=== PATIENT | male | born 1980 | race Two or more races ===

== ENCOUNTER 2025-01-12 14:48 | Emergency (ER) | payer MEDICAID, OTHER ==
[~2025-01-12] VITALS: Ht 180.3 cm; Wt 117.0 kg
[2025-01-12 15:12] VITALS: BP 132/82; PULSE 64; RESP 20; TEMP 98.7; O2SAT 96
--- NOTE | 2025-01-12 16:20 | ED.PDOC ---
History of Present Illness(SKN HPI Comments A 44 YEAR OLD MALE PRESENTS TO THE ED WITH COMPLAINT OF PUNCTURE WOUND OF LEFT HAND. PATIENT STATES HE WAS WORKING WITH A PIECE OF WOOD AND A PART OF IT BROKE AND PUNCTURED HIS LEFT HAND. PATIENT REPORTS HE SUSTAINED A PUNCTURE WOUND TO HIS LEFT HAND. BLEEDING IS CONTROLLED AT THIS TIME. PATIENT DENIES FEVER, CHILLS, SHORTNESS OF BREATH, CHEST PAIN, ABDOMINAL PAIN, NAUSEA, VOMITING, HEADACHE, OR OTHER COMPLAINTS. NO OTHER SYMPTOMS OR MODIFYING FACTORS AT THIS TIME. PATIENT IS ALERT, ORIENTED X 4, AND HAS STEADY GAIT. 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) Condition of Object: None Retained Foreign Body: No Wound Type: Puncture Immunization Status of Animal: NA Tetanus: Unknown History of: None Associated Signs and Symptoms: None Past Medical History PAST MEDICAL HISTORY: Denies Surgical History: Denies all surgeries Family History Family History: Reviewed,noncontributory to illness Social History Smoker: Non-Smoker Alcohol: Denies ETOH Use Drugs: Denies Drug Use Lives In: Home Constitutional: denies: chills, diaphoresis, fatigue, fever, malaise, sweats, weakness, others EENTM: denies: blurred vision, double vision, ear bleeding, ear discharge, ear drainage, ear pain, ear ringing, eye pain, eye redness, hearing loss, mouth pain, mouth swelling, nasal discharge, nose bleeding, nose congestion, nose pain, photophobia, tearing, throat pain, throat swelling, voice changes, others Respiratory: denies: cough, hemoptysis, orthopnea, SOB at rest, shortness of breath, SOB with excertion, stridor, wheezing, others Cardiovascular: denies: chest pain, dizzy spells, diaphoresis, Dyspnea on exertion, edema, irregular heart beat, left arm pain, lightheadedness, palpitations, PND, syncope, others Gastrointestinal: denies: abdomen distended, abdominal pain, blood streaked bowels, constipated, diarrhea, dysphagia, difficulty swallowing, hematemesis, melena, nausea, poor appetite, poor fluid intake, rectal bleeding, rectal pain, vomiting, others Genitourinary: denies: burning, dysuria, flank pain, frequency, hematuria, incontinence, penile discharge, penile sore, pain, testicle pain, testicle swelling, urgency, others Neurological: denies: dizziness, fainting, headache, left sided numbness, left sided weakness, numbness, paresthesia, pre-existing deficit, right sided numbness, right sided weakness, seizure, speech problems, tingling, tremors, weakness, others Musculoskeletal: denies: back pain, gout, joint pain, joint swelling, muscle pain, muscle stiffness, neck pain, others Integumetry: reports: laceration (LEFT HAND ), wounds (PUNCTURE WOUND OF LEFT HAND); denies: bruises, change in color, change in hair/nails, dryness, lesions, lumps, rash, others Allergic/Immunocompromised: denies: Difficulty Healing, Frequent Infections, Hives, Itching, others Hematologic/Lymphatic: denies: anemia, blood clots, easy bleeding, easy bruising, swollen glands, others Endocrine: denies: excessive hunger, excessive sweating, excessive thirst, excessive urination, flushing, intolerance to cold, intolerance to heat, unexplained weight gain, unexplained weight loss, others Psychiatric: denies: anxiety, bipolar disorder, depression, hopeless, panic disorder, schizophrenia, sleepless, suicidal, others All Other Systems: Reviewed and Negative Physical Exam General Appearance: No Apparent Distress, Normal HEENT: Normal ENT Inspection, PERRL/EOMI, Pharynx Normal, TMs Normal Neck: Full Range of Motion, Non-Tender, Normal, Normal Inspection Respiratory: Chest Non-Tender, Lungs Clear, No Accessory Muscle Use, No Respiratory Distress, Normal Breath Sounds Cardiovascular: No Edema, No JVD, No Murmur, No Gallop, Normal Peripheral Pulses, Regular Rate/Rhythm Breast Exam: Deferred Gastrointestinal: No Organomegaly, Non Tender, No Pulsatile Mass, Normal Bowel Sounds, Soft Genitalia: Deferred Pelvic: Deferred Rectal: Deferred Extremities: No calf tenderness, Normal capillary refill, Normal range of motion, No pedal edema, Tender (AND LACERATTION ON LEFT HAND, NO BONY TENDERNESS, SWELLING AND DEFORMITY, NORMAL ROM. ) Musculoskeletal : Apperance: Normal Neurologic: Alert, hangar attendant II-XII nml as Tested, No Motor Deficits, Normal Affect, Normal Mood, No Sensory Deficits Cerebellar Function: Normal Reflexes: Normal Skin: Dry, Lacerations (2.5CM LACERATION ON LEFT HAND, NO BLEEDING AND FB, NEUROVASCULAR INTACT, NORMAL ROM. ), Normal Color, Warm Peripheral Pulses: 2+ carotid (R), 2+ carotid (L), 2+ Radial (R), 2+ Radial (L) Lymphatic: No Adenopathy Was a procedure done? Was a procedure done?: Yes Sedation Sedation?: No Laceration Repair : Location LEFT HAND Length 2.5CM Anesthetic: Lidocaine, Without epi Laceration Repair Prep: Saline, by Irrigation Laceration Repair Wound Comple: epidermis/dermis repair Laceration Repair: Number of sutures (5), SQ, Size (4-0 ETHILON), Nylon, Simple, Gauze Informed consent obtained: No Risks, benefits, and alternati: Yes Images 1 - Differential Diagnosis (INTG) Differential Diagnosis: Abrasion, Contusion, Laceration, Puncture Wound Differential Diagnosis: N/A Differential Diagnosis: N/A Abscess: N/A Differential Diagnosis: N/A X-Ray, Labs, Meds, VS Vital Signs Date Time Temp Pulse Resp B/P (MAP) Pulse Ox O2 Delivery O2 Flow Rate FiO2 01/12/25 15:12 98.7 64 20 132/82 (99) 96 98.7 01/12/25 15:12 98.7 64 20 132/82 (99) 96 98.7 X-Ray, Labs, Meds, VS Comment EXTERNAL MEDICAL RECORDS REVIEWED: [NONE] INDEPENDENT HISTORIANS: [NONE] SOCIAL DETERMINANTS OF HEALTH: [NONE] LABS ORDERED: NONE REVIEWED AND INTERPRETED RESULTS: NONE IMAGING ORDERED: NONE TREATMENTS ORDERED: LACERATION REPAIR AND TD 0.5ML IM PROCEDURES PERFORMED: LACERATION REPAIR CRITICAL CARE TIME: NONE I HAVE DISCUSSED THE PATIENT WITH THE ATTENDING PHYSICIAN DR. PERLA AND HE AGREES WITH THE PATIENT'S PLAN OF CARE AND DISPOSITION. BASED ON HISTORY OF PRESENT ILLNESS, AND PHYSICAL EXAM, PATIENT WILL BE DISCHARGED HOME. SHARED DECISION MAKING: PATIENT INSTRUCTED TO FOLLOW UP WITH PRIMARY CARE PROVIDER IN 1-2 DAYS FOR RE-EVALUATION OF SYMPTOMS. PATIENT VERBALIZES UNDERSTANDING TO RETURN TO ED FOR NEW OR WORSENING SYMPTOMS OR IF FOLLOW UP WITH PCP CANNOT BE OBTAINED. PATIENT FEELS COMFORTABLE GOING HOME AT THIS TIME. ALL QUESTIONS ADDRESSED AT TIME OF DISCHARGE. Time of 1ST Reevaluation: 17:00 Reevaluation 1ST: Improved Patient Education/Counseling: Diagnosis, Treatment, Need For Follow Up Family Education/Counseling: Diagnosis, Treatment, Need For Follow Up Medical Screening: No EMC Exist At This Time Departure 1 Departure Time of Disposition: 17:00 Impression: Primary Impression: Laceration of left hand Qualified Codes: S61.412A - Laceration without foreign body of left hand, initial encounter Disposition: HOME / SELF CARE / HOMELESS Condition: Stable Additional Instructions: FOLLOW-UP WITH PCP IN 1 TO 2 DAYS. TAKE MEDICATIONS PRESCRIBED. RETURN TO ED FOR ANY NEW OR WORSENING SYMPTOMS. e-Prescriptions Cephalexin Monohydrate (Cephalexin) 500 Mg Cap 1 CAP PO QID, #32 CAP Prov: JOANN SOLIS 01/12/25 Discharged With: Self Critical Care Note Critical Care Time?: No Stability Stability form required: No I personally scribed for JOANN SOLIS ([email or web address]) on 01/12/25 at 16:20. Electronically submitted by Hector Banks ([email or web address]). I personally scribed for JOANN SOLIS ([email or web address]) on 01/12/25 at 16:34. Electronically submitted by Hector Banks ([email or web address]). JOANN SOLIS Jan 12, 2025 16:20
[2025-01-12] MEDS ORDERED: CEPH500C PO (16:48)
[2025-01-12] MEDS: TETANUS-DIPTH-ACEL PERTUSSIS 0.5ML SYR Tdap IM ONE (16:50)
== END 2025-01-12 16:53 | disposition home or self-care (01) ==
LOC: ER 14:48
DX: S61.412A Laceration without foreign body of left hand, initial encounter (principal); W26.9XXA Contact with unspecified sharp object(s), initial encounter; Y93.89 Activity, other specified; Y92.89 Other specified places as the place of occurrence of the external cause; Y99.0 Civilian activity done for income or pay
CPT/HCPCS: 12001; 90471; 90715

== ENCOUNTER 2025-07-12 21:05 | Emergency (ER) | payer MEDICAID ==
[~2025-07-12] VITALS: Ht 180.3 cm; Wt 115.9 kg
[~2025-07-12 21:05] MED LIST: CEPH500C PO
[2025-07-12] MEDS ORDERED: CEPH250C PO (23:57)
[2025-07-12] MEDS ORDERED: IBUP-1455 PO (23:57)
--- NOTE | 2025-07-12 23:58 | ED.PDOC ---
Musculoskeletal HPI Comments This patient is a pleasant but morbidly obese 45-year-old male who arrives to the ED today for evaluation of a right distal 4th finger laceration sustained approximately 1 hour prior to arrival. Patient was working on a car when he smashed his finger against an unknown object. No active bleed. Vital signs were stable. Patient's tetanus is up-to-date. Chief Complaint: Upper Extremity Time Seen by MD: 22:38 Reviewed Notes: Nurses Notes Allergies: Coded Allergies: NO KNOWN ALLERGIES (Unverified , 01/12/25) Home Meds Active Scripts Cephalexin Monohydrate (Cephalexin) 500 Mg Cap, 1 CAP PO QID, #32 CAP Prov:JOANN SOLIS 01/12/25 Information Source: Patient, Friend Mode of Arrival: Ambulatory Location: Right Extremity Location: Finger 4 Timing: Minutes Prehospital treatment: None Severity: Moderate Able to Move Extremity: Yes Bear Weight: Fully Pain: Moderate Hand Dominance: Right Mechanism: Metal Cut Circumstances: Accident Onset of Symptoms: After Trauma Symptoms: Pain DVT Risk Factors: NONE Past Medical History PAST MEDICAL HISTORY: Denies Surgical History: Denies all surgeries Family History Family History: Reviewed,noncontributory to illness Social History Smoker: Non-Smoker Alcohol: Denies ETOH Use Drugs: Denies Drug Use Lives In: Home Constitutional: denies: chills, diaphoresis, fatigue, fever, malaise, sweats, weakness, others EENTM: denies: blurred vision, double vision, ear bleeding, ear discharge, ear drainage, ear pain, ear ringing, eye pain, eye redness, hearing loss, mouth pain, mouth swelling, nasal discharge, nose bleeding, nose congestion, nose pain, photophobia, tearing, throat pain, throat swelling, voice changes, others Respiratory: denies: cough, hemoptysis, orthopnea, SOB at rest, shortness of breath, SOB with excertion, stridor, wheezing, others Cardiovascular: denies: chest pain, dizzy spells, diaphoresis, Dyspnea on exertion, edema, irregular heart beat, left arm pain, lightheadedness, palpitations, PND, syncope, others Gastrointestinal: denies: abdomen distended, abdominal pain, blood streaked bowels, constipated, diarrhea, dysphagia, difficulty swallowing, hematemesis, melena, nausea, poor appetite, poor fluid intake, rectal bleeding, rectal pain, vomiting, others Genitourinary: denies: burning, dysuria, flank pain, frequency, hematuria, incontinence, penile discharge, penile sore, pain, testicle pain, testicle swelling, urgency, others Neurological: denies: dizziness, fainting, headache, left sided numbness, left sided weakness, numbness, paresthesia, pre-existing deficit, right sided numbness, right sided weakness, seizure, speech problems, tingling, tremors, weakness, others Integumetry: reports: laceration (2 cm laceration to distal right 4th finger); denies: bruises, change in color, change in hair/nails, dryness, lesions, lumps, rash, wounds, others Allergic/Immunocompromised: denies: Difficulty Healing, Frequent Infections, Hives, Itching, others Hematologic/Lymphatic: denies: anemia, blood clots, easy bleeding, easy bruising, swollen glands, others Endocrine: denies: excessive hunger, excessive sweating, excessive thirst, excessive urination, flushing, intolerance to cold, intolerance to heat, unexplained weight gain, unexplained weight loss, others Psychiatric: denies: anxiety, bipolar disorder, depression, hopeless, panic disorder, schizophrenia, sleepless, suicidal, others Physical Exam General Appearance: Mild Distress (Moderate distress due to laceration con cerns.), Obese HEENT: Normal ENT Inspection, Pharynx Normal, TMs Normal Neck: Full Range of Motion, Non-Tender, Normal, Normal Inspection Respiratory: Chest Non-Tender, Lungs Clear, No Accessory Muscle Use, No Respiratory Distress, Normal Breath Sounds Cardiovascular: No Edema, No JVD, No Murmur, No Gallop, Normal Peripheral Pulses, Regular Rate/Rhythm Breast Exam: Deferred Gastrointestinal: No Organomegaly, Non Tender, No Pulsatile Mass, Normal Bowel Sounds, Soft Genitalia: Deferred Pelvic: Deferred Rectal: Deferred Extremities: No calf tenderness, Normal capillary refill, Normal inspection, Normal range of motion, Non-tender, No pedal edema Neurologic: Alert, No Motor Deficits, Normal Affect, Normal Mood, No Sensory Deficits Cerebellar Function: NOT DONE Reflexes: NOT DONE Skin: Lacerations (1.5 cm laceration to the tip of the right ring finger. No active bleed.) Lymphatic: No Adenopathy Was a procedure done? Was a procedure done?: Yes Sedation Sedation?: No Other Procedure Notes 4 cc of 1% lidocaine was utilized for feel block of right distal 4th finger. Sterile field was placed. Copious irrigation performed. Five 4-0 Ethilon sutures were placed in a simple interrupted fashion to close the wound. Minimal blood loss. Clean dressing applied. Patient tolerated procedure well. Differential Diagnosis EXT Differential Diagnosis: Other (Finger laceration) X-Ray, Labs, Meds, VS Vital Signs Date Time Temp Pulse Resp B/P (MAP) Pulse Ox O2 Delivery O2 Flow Rate FiO2 07/12/25 21:05 98.5 57 18 158/94 96 98.5 X-Ray, Labs, Meds, VS Comment Patient tolerated suturing procedure well. Advised antibiotics for the next few days to stave off infection. Pain medication as needed. Patient should do daily dressing changes and keep the wound clean. Patient should return to ED or primary care provider in 10 days for re-evaluation and probable suture removal. Time of 1ST Reevaluation: 23:56 Reevaluation 1ST: Improved Consultation: PCP Patient Education/Counseling: Diagnosis, Treatment Family Education/Counseling: Diagnosis, Treatment Sepsis Recent Procedure: No On Antibiotic Therapy: No Respiratory Rate >20: No Heart Rate >90: No Temp<36 C (96.8 F) or >38.3 C: No SBP <90 or MAP <65 mmHG: No New Acute Mental Status Change: No Is the patient on CPAP, BIPAP,: No IV fluid given: No Departure 1 Departure Time of Disposition: 23:56 Impression: Primary Impression: Finger laceration Disposition: HOME / SELF CARE / HOMELESS Condition: Stable Additional Instructions: Advise utilizing antibiotics as directed until completion as well as pain medication as needed. Daily dressing changes advised. Patient should return to ED or primary care provider in 10 days for re-evaluation and probable suture removal. e-Prescriptions Ibuprofen Micronized (Ibuprofen) 800 Mg Tab 800 MG PO Q8HP PRN, #20 TAB Prov: AZIZA MCLAUGHLIN PAC 07/12/25 Cephalexin (KEFLEX CAPSULE) 250 Mg Cp 1 CAP PO QID for 7 Days, #28 CAP Prov: AZIZA MCLAUGHLIN PAC 07/12/25 Discharged With: Self, Friend Critical Care Note Critical Care Time?: No Stability Stability form required: No Heart Score Heart Score: Heart Score Response (Comments) Value History N/A 0 EKG N/A 0 Age N/A 0 Risk Factors N/A 0 Troponin N/A 0 Total 0 AZIZA MCLAUGHLIN PAC Jul 12, 2025 23:58
[2025-07-13] VITALS: BP 138/67; PULSE 52; RESP 18; TEMP 97.8; O2SAT 95
== END 2025-07-13 00:05 | disposition home or self-care (01) ==
LOC: ER 21:05
DX: S61.214A Laceration without foreign body of right ring finger without damage to nail, initial encounter (principal); W23.0XXA Caught, crushed, jammed, or pinched between moving objects, initial encounter; Y93.89 Activity, other specified; Y92.810 Car as the place of occurrence of the external cause; Y99.8 Other external cause status
CPT/HCPCS: 12001

== ENCOUNTER 2025-07-15 08:10 | Emergency (ER) | payer MEDICAID ==
[~2025-07-15] VITALS: Ht 180.3 cm; Wt 119.0 kg
[~2025-07-15 08:10] MED LIST changes: +CEPH250C PO; +IBUP-1455 PO
[2025-07-15 08:12] VITALS: BP 165/98; PULSE 58; RESP 16; TEMP 97.8; O2SAT 99
--- NOTE | 2025-07-15 09:00 | ED.PDOC ---
History of Present Illness HPI Comments A 45 YEAR OLD MALE PRESENTS TO THE ED WITH COMPLAINT OF RIGHT 4TH FINGER WOUND RECHECK. PATIENT STATES HE SUSTAINED A LACERATION ON HIS RIGHT 4TH FINGER 3 DAYS AGO AND HAD SUTURES PLACED TO THE AREA AND THIS ED 3 DAYS AGO. PATIENT REPORTS HIS RIGHT 4TH FINGER HAS BEEN INCREASINGLY PAINFUL AND SWOLLEN AND IS CONCERNED HE MAY HAVE AN INFECTION TO THE AREA. PATIENT ALSO NOTES THAT HE DID NOT HAVE AN X-RAY DONE LAST TIME HE WAS IN THIS ED DESPITE HIS INJURY BEING A SMASH INJURY. PATIENT DENIES FEVER, CHILLS, SHORTNESS OF BREATH, CHEST PAIN, ABDOMINAL PAIN, NAUSEA, VOMITING, HEADACHE, OR OTHER COMPLAINTS. NO OTHER SYMPTOMS OR MODIFYING FACTORS AT THIS TIME. PATIENT IS ALERT, ORIENTED X 4, AND HAS STEADY GAIT. Chief Complaint: Wound Check Time Seen by MD: 08:18 Reviewed Notes: Nurses Notes, Medications, Allergies Allergies: Coded Allergies: NO KNOWN ALLERGIES (Unverified , 01/12/25) Home Meds Active Scripts Ibuprofen Micronized (Ibuprofen) 800 Mg Tab, 800 MG PO Q8HP PRN, #20 TAB Prov:AZIZA MCLAUGHLIN PAC 07/12/25 Cephalexin (KEFLEX CAPSULE) 250 Mg Cp, 1 CAP PO QID for 7 Days, #28 CAP Prov:AZIZA MCLAUGHLIN PAC 07/12/25 Cephalexin Monohydrate (Cephalexin) 500 Mg Cap, 1 CAP PO QID, #32 CAP Prov:JOANN SOLIS 01/12/25 Information Source: Patient Mode of Arrival: Ambulatory Severity: Moderate Timing: Days Duration: Since onset, Days Prehospital treatment: None Medication Refill: For: Other (RIGHT 4TH FINGER WOUND RECHECKED) Past Medical History PAST MEDICAL HISTORY: Denies Surgical History: Denies all surgeries Family History Family History: Reviewed,noncontributory to illness Social History Smoker: Non-Smoker Alcohol: Denies ETOH Use Drugs: Denies Drug Use Lives In: Home Constitutional: denies: chills, diaphoresis, fatigue, fever, malaise, sweats, weakness, others EENTM: denies: blurred vision, double vision, ear bleeding, ear discharge, ear drainage, ear pain, ear ringing, eye pain, eye redness, hearing loss, mouth pain, mouth swelling, nasal discharge, nose bleeding, nose congestion, nose pain, photophobia, tearing, throat pain, throat swelling, voice changes, others Respiratory: denies: cough, hemoptysis, orthopnea, SOB at rest, shortness of breath, SOB with excertion, stridor, wheezing, others Cardiovascular: denies: chest pain, dizzy spells, diaphoresis, Dyspnea on exertion, edema, irregular heart beat, left arm pain, lightheadedness, palpitations, PND, syncope, others Gastrointestinal: denies: abdomen distended, abdominal pain, blood streaked bowels, constipated, diarrhea, dysphagia, difficulty swallowing, hematemesis, melena, nausea, poor appetite, poor fluid intake, rectal bleeding, rectal pain, vomiting, others Genitourinary: denies: burning, dysuria, flank pain, frequency, hematuria, incontinence, penile discharge, penile sore, pain, testicle pain, testicle swelling, urgency, others Neurological: denies: dizziness, fainting, headache, left sided numbness, left sided weakness, numbness, paresthesia, pre-existing deficit, right sided numbness, right sided weakness, seizure, speech problems, tingling, tremors, weakness, others Musculoskeletal: denies: back pain, gout, joint pain, joint swelling, muscle pain, muscle stiffness, neck pain, others Integumetry: reports: laceration (RIGHT 4TH FINGER REPAIRED. ), others (LACERA TION WOUND OF RIGHT 4TH FINGER RECHECK, REDNESS AND SWELLING OF RIGHT 4TH FINGER); denies: bruises, change in color, change in hair/nails, dryness, lesions, lumps, rash, wounds Allergic/Immunocompromised: denies: Difficulty Healing, Frequent Infections, Hives, Itching, others Hematologic/Lymphatic: denies: anemia, blood clots, easy bleeding, easy bruising, swollen glands, others Endocrine: denies: excessive hunger, excessive sweating, excessive thirst, excessive urination, flushing, intolerance to cold, intolerance to heat, unexplained weight gain, unexplained weight loss, others Psychiatric: denies: anxiety, bipolar disorder, depression, hopeless, panic disorder, schizophrenia, sleepless, suicidal, others All Other Systems: Reviewed and Negative Physical Exam General Appearance: No Apparent Distress, Obese HEENT: Normal ENT Inspection, PERRL/EOMI, Pharynx Normal, TMs Normal Neck: Full Range of Motion, Non-Tender, Normal, Normal Inspection Respiratory: Chest Non-Tender, Lungs Clear, No Accessory Muscle Use, No Respiratory Distress, Normal Breath Sounds Cardiovascular: No Edema, No JVD, No Murmur, No Gallop, Normal Peripheral Pulses, Regular Rate/Rhythm Breast Exam: Deferred Gastrointestinal: No Organomegaly, Non Tender, No Pulsatile Mass, Normal Bowel Sounds, Soft Genitalia: Deferred Pelvic: Deferred Rectal: Deferred Extremities: No calf tenderness, Normal capillary refill, Normal range of motion, No pedal edema, Swelling (AND REDNESS ON RIGHT 4TH FINGER WITH MILD PUS DRAINAGE, NO BONY TENDERNESS AND DEFORMITY. ), Tender (ON RIGHT 4TH FINGER WITH REDNESS AND SWELLING. 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 ), Normal Color, Warm Peripheral Pulses: 2+ carotid (R), 2+ carotid (L), 2+ Radial (R), 2+ Radial (L) Lymphatic: No Adenopathy Was a procedure done? Was a procedure done?: Yes Sedation Sedation?: No Incision and Drainage Incision and Drainage: Other (RIGHT 4TH FINGER WOUND INFECTION) Location RIGHT 4TH FINGER Preparation: Betadine, Saline Incision and Wound: Pus, Blood, Amount, Irrigated Informed consent obtained: No Risks/benefits/alt described: Yes Notes AN 18 GAUGE NEEDLE WAS USED TO POKE A HOLE INTO THE PATIENT'S RIGHT 4TH FINGER. PUS AND BLOOD WAS DRAINED FROM THE AFFECTED AREA AND SWELLING AND PAIN WAS NOTED TO HAVE DECREASED. PATIENT'S RIGHT 4TH FINGER WAS THEN CLEANED WITH NORMAL SALINE. PATIENT TOLERATED WELL. Differential Dx Considerations may include: LACERATION WOUND RECHECKED, SOFT TISSUE INFECTION, PARONYCHIA, FRACTURE, CONTUSION X-Ray, Labs, Meds, VS Vital Signs Date Time Temp Pulse Resp B/P (MAP) Pulse Ox O2 Delivery O2 Flow Rate FiO2 07/15/25 08:12 97.8 58 16 165/98 99 97.8 Current Medications Medications (Trade) Dose Ordered Sig/Britney Route Start Time Stop Time Status Last Admin Ceftriaxone Sodium (Rocephin) 1,000 mg ONCE ONCE IM 07/15/25 09:15 07/15/25 09:16 DC 07/15/25 09:08 X-Ray, Labs, Meds, VS Comment EXTERNAL MEDICAL RECORDS REVIEWED: [NONE] INDEPENDENT HISTORIANS: [NONE] SOCIAL DETERMINANTS OF HEALTH: [NONE] LABS ORDERED: NONE REVIEWED AND INTERPRETED RESULTS: NONE IMAGING ORDERED: XR HAND RT: [INTERPRETED BY ME. NO ACUTE FINDINGS. NO FRACTURES OR DISLOCATION. PENDING RADIOLOGIST REPORT.] TREATMENTS ORDERED: REMOVED TWO SUTURES, AN 18 GAUGE NEEDLE WAS USED TO POKE A HOLE INTO THE PATIENT'S RIGHT 4TH FINGER. PUS AND BLOOD WAS DRAINED FROM THE AFFECTED AREA AND SWELLING AND PAIN WAS NOTED TO HAVE DECREASED. PATIENT'S RIGHT 4TH FINGER WAS THEN CLEANED WITH NORMAL SALINE. PATIENT TOLERATED WELL. ROCEPHIN 1GM IM. PROCEDURES PERFORMED: NONE CRITICAL CARE TIME: NONE I HAVE DISCUSSED THE PATIENT WITH THE ATTENDING PHYSICIAN DR. SOLARES AND HE AGREES WITH THE PATIENT'S PLAN OF CARE AND DISPOSITION. BASED ON HISTORY OF PRESENT ILLNESS, AND PHYSICAL EXAM, PATIENT WILL BE DISCHARGED HOME. SHARED DECISION MAKING: PATIENT INSTRUCTED TO FOLLOW UP WITH PRIMARY CARE PROVIDER IN 1-2 DAYS FOR RE-EVALUATION OF SYMPTOMS. PATIENT VERBALIZES UNDERSTANDING TO RETURN TO ED FOR NEW OR WORSENING SYMPTOMS OR IF FOLLOW UP WITH PCP CANNOT BE OBTAINED. PATIENT FEELS COMFORTABLE GOING HOME AT THIS TIME. ALL QUESTIONS ADDRESSED AT TIME OF DISCHARGE. Images Reviewed?: Images reviewed and evaluated by me Time of 1ST Reevaluation: 09:38 Reevaluation 1ST: Improved Patient Education/Counseling: Diagnosis, Treatment, Need For Follow Up Family Education/Counseling: Diagnosis, Treatment, No Family Present Medical Screening: No EMC Exist At This Time SEPSIS Sepsis Screen Date sepsis recognized/suspect: Jul 15, 2025 Time Sepsis recognized/suspect: 813 Recent Procedure: No On Antibiotic Therapy: No Respiratory Rate >20: No Heart Rate >90: No Temp<36 C (96.8 F) or >38.3 C: No SBP <90 or MAP <65 mmHG: No New Acute Mental Status Change: No Is the patient on CPAP, BIPAP,: No Physician Orders R 4th Finger Xray (07/15/25 09:03) Vital Signs Date Time Temp Pulse Resp B/P (MAP) Pulse Ox O2 Delivery O2 Flow Rate FiO2 07/15/25 08:12 97.8 58 16 165/98 99 97.8 Medications Medications Dose Ordered Sig/Britney Route Start Time Stop Time Status Last Admin Dose Admin Ceftriaxone Sodium 1,000 mg ONCE ONCE IM 07/15/25 09:15 07/15/25 09:16 DC 07/15/25 09:08 Departure 1 Departure Time of Disposition: 09:50 Impression: Primary Impression: Encounter for re-check of laceration wound Additional Impression: Wound infection Disposition: HOME / SELF CARE / HOMELESS Condition: Stable Additional Instructions: FOLLOW-UP WITH PCP IN 1 TO 2 DAYS. RETURN TO ED FOR ANY NEW OR WORSENING SYMPTOMS. Discharged With: Self Critical Care Note Critical Care Time?: No Stability Stability form required: No I personally scribed for JOANN SOLIS ([email or web address]) on 07/15/25 at 09:00. Electronically submitted by Hector Banks ([email or web address]). I personally scribed for JOANN SOLIS ([email or web address]) on 07/15/25 at 09:04. Electronically submitted by Hector Banks ([email or web address]). I personally scribed for JOANN SOLIS ([email or web address]) on 07/15/25 at 09:16. Electronically submitted by Hector Banks ([email or web address]). JOANN SOLIS Jul 15, 2025 09:00
[2025-07-15] MEDS: cefTRIAXone SOD 1,000 MG VL IM ONE (09:08)
--- NOTE | 2025-07-15 09:33 | DVH ---
EXAM: XY R 4TH FINGER XRAY CLINICAL INDICATION: R/O FX TECHNIQUE: XY R 4TH FINGER XRAY Comparison: None FINDINGS/IMPRESSION: There is no evidence of acute fracture or dislocation. The visualized joint space is well maintained. The alignment is anatomical. There is no radiopaque foreign body.
== END 2025-07-15 09:24 | disposition home or self-care (01) ==
LOC: ER 08:12
DX: S61.214D Laceration without foreign body of right ring finger without damage to nail, subsequent encounter (principal); L08.9 Local infection of the skin and subcutaneous tissue, unspecified; X58.XXXD Exposure to other specified factors, subsequent encounter
CPT/HCPCS: 26010; 73140; 96372; 99283; J0696

== ENCOUNTER 2025-07-18 11:27 | Emergency (ER) | payer MEDICAID ==
[~2025-07-18] VITALS: Ht 180.3 cm; Wt 118.0 kg
--- NOTE | 2025-07-18 12:11 | ED.PDOC ---
History of Present Illness(SKN HPI Comments A 45 YEAR OLD MALE PRESENTS TO THE ED WITH COMPLAINT OF WOUND RECHECK. PATIENT REPORTS THAT HE WAS ADVISED TO COME BACK TODAY AFTER HAVING A RIGHT 4TH FINGER WOUND DRAINED 3 DAYS AGO DUE TO INFECTION. PATIENT RELAYS THAT THE FINGER IS HEALING MORE NOW, BUT SUTURES ARE STILL IN PLACE. PATIENT DENIES FEVER, CHILLS, SHORTNESS OF BREATH, CHEST PAIN, ABDOMINAL PAIN, NAUSEA, VOMITING, HEADACHE, OR OTHER COMPLAINTS. NO OTHER SYMPTOMS OR MODIFYING FACTORS AT THIS TIME. PATIENT IS ALERT, ORIENTED X 4, AND HAS STEADY GAIT. Chief Complaint: Wound Check Time Seen by MD: 12:07 History of Present Illness: Nurses Notes, Medications, Allergies Allergies: Coded Allergies: NO KNOWN ALLERGIES (Unverified , 01/12/25) Home Meds Active Scripts Ibuprofen Micronized (Ibuprofen) 800 Mg Tab, 800 MG PO Q8HP PRN, #20 TAB Prov:AZIZA MCLAUGHLIN PAC 07/12/25 Cephalexin (KEFLEX CAPSULE) 250 Mg Cp, 1 CAP PO QID for 7 Days, #28 CAP Prov:AZIZA MCLAUGHLIN PAC 07/12/25 Cephalexin Monohydrate (Cephalexin) 500 Mg Cap, 1 CAP PO QID, #32 CAP Prov:JOANN SOLIS 01/12/25 Information Source: Patient Mode of Arrival: Ambulatory Severity: Moderate Timing: Days Duration: Since onset Prehospital treatment: None Location: Hand Mechanism: Preceding Wound Object: None Condition of Object: None Wound Type: Other (INFECTED SUTURED WOUND) Tetanus: UTD Associated Signs and Symptoms: Pain Past Medical History PAST MEDICAL HISTORY: Denies Surgical History: Denies all surgeries Family History Family History: Reviewed,noncontributory to illness Social History Smoker: Non-Smoker Alcohol: Denies ETOH Use Drugs: Denies Drug Use Lives In: Home Constitutional: denies: chills, diaphoresis, fatigue, fever, malaise, sweats, weakness, others EENTM: denies: blurred vision, double vision, ear bleeding, ear discharge, ear drainage, ear pain, ear ringing, eye pain, eye redness, hearing loss, mouth pain, mouth swelling, nasal discharge, nose bleeding, nose congestion, nose pain, photophobia, tearing, throat pain, throat swelling, voice changes, others Respiratory: denies: cough, hemoptysis, orthopnea, SOB at rest, shortness of breath, SOB with excertion, stridor, wheezing, others Cardiovascular: denies: chest pain, dizzy spells, diaphoresis, Dyspnea on exertion, edema, irregular heart beat, left arm pain, lightheadedness, palpitations, PND, syncope, others Gastrointestinal: denies: abdomen distended, abdominal pain, blood streaked bowels, constipated, diarrhea, dysphagia, difficulty swallowing, hematemesis, melena, nausea, poor appetite, poor fluid intake, rectal bleeding, rectal pain, vomiting, others Genitourinary: denies: burning, dysuria, flank pain, frequency, hematuria, incontinence, penile discharge, penile sore, pain, testicle pain, testicle swelling, urgency, others Neurological: denies: dizziness, fainting, headache, left sided numbness, left sided weakness, numbness, paresthesia, pre-existing deficit, right sided numbness, right sided weakness, seizure, speech problems, tingling, tremors, weakness, others Musculoskeletal: denies: back pain, gout, joint pain, joint swelling, muscle pain, muscle stiffness, neck pain, others Integumetry: reports: others (SUTURED WOUND ON RIGHT 4TH FINGER); denies: bruises, change in color, change in hair/nails, dryness, laceration, lesions, lumps, rash, wounds Allergic/Immunocompromised: denies: Difficulty Healing, Frequent Infections, Hives, Itching, others Hematologic/Lymphatic: denies: anemia, blood clots, easy bleeding, easy bruising, swollen glands, others Endocrine: denies: excessive hunger, excessive sweating, excessive thirst, excessive urination, flushing, intolerance to cold, intolerance to heat, unexplained weight gain, unexplained weight loss, others Psychiatric: denies: anxiety, bipolar disorder, depression, hopeless, panic disorder, schizophrenia, sleepless, suicidal, others All Other Systems: Reviewed and Negative Physical Exam General Appearance: No Apparent Distress, Normal HEENT: Normal ENT Inspection, PERRL/EOMI, Pharynx Normal, TMs Normal Neck: Full Range of Motion, Non-Tender, Normal, Normal Inspection Respiratory: Chest Non-Tender, Lungs Clear, No Accessory Muscle Use, No Respiratory Distress, Normal Breath Sounds Cardiovascular: No Edema, No JVD, No Murmur, No Gallop, Normal Peripheral Pulses, Regular Rate/Rhythm Breast Exam: Deferred Gastrointestinal: No Organomegaly, Non Tender, No Pulsatile Mass, Normal Bowel Sounds, Soft Genitalia: Deferred Pelvic: Deferred Rectal: Deferred Extremities: No calf tenderness, Normal capillary refill, Normal inspection, Normal range of motion, Non-tender, No pedal edema Musculoskeletal : Apperance: Normal Neurologic: Alert, 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 ) Peripheral Pulses: 2+ carotid (R), 2+ carotid (L) Lymphatic: No Adenopathy Was a procedure done? Was a procedure done?: No Differential Diagnosis (INTG) Differential Diagnosis: Cellulitis, Puncture Wound, Other (SUTURE REMOVAL AND WOUND RECHECK OF RIGHT 4TH FINGER ) X-Ray, Labs, Meds, VS Vital Signs Date Time Temp Pulse Resp B/P (MAP) Pulse Ox O2 Delivery O2 Flow Rate FiO2 07/18/25 11:30 97.9 61 18 134/86 100 97.9 X-Ray, Labs, Meds, VS Comment EXTERNAL MEDICAL RECORDS REVIEWED: [NONE] INDEPENDENT HISTORIANS: [NONE] SOCIAL DETERMINANTS OF HEALTH: [NONE] LABS ORDERED: NONE REVIEWED AND INTERPRETED RESULTS: NONE IMAGING ORDERED: NONE TREATMENTS ORDERED: WOUND CLEANED WITH NORMAL SALINE, REMOVED THE SUTURES, PUSHED THE DRAINAGE OUT AND WRAPPED. PROCEDURES PERFORMED: REMOVED 2 SUTURES CRITICAL CARE TIME: NONE I HAVE DISCUSSED THE PATIENT WITH THE ATTENDING PHYSICIAN, DR. DONAHUE, HE AGREES WITH THE PATIENT'S PLAN OF CARE AND DISPOSITION. BASED ON HISTORY OF PRESENT ILLNESS, AND PHYSICAL EXAM, PATIENT WILL BE DISCHARGED HOME. DISCUSSED PLAN FOR DISCHARGE HOME. SHARED DECISION MAKING: DISCUSSED WITH PATIENT THAT THEIR WORKUP WAS NORMAL. PATIENT INSTRUCTED TO FOLLOW UP WITH PRIMARY CARE PROVIDER IN 1-2 DAYS FOR RE- EVALUATION OF SYMPTOMS. PATIENT VERBALIZES UNDERSTANDING TO RETURN TO ED FOR NEW OR WORSENING SYMPTOMS OR IF FOLLOW UP WITH PCP CANNOT BE OBTAINED. PATIENT FEELS COMFORTABLE GOING HOME AT THIS TIME. ALL QUESTIONS ADDRESSED AT TIME OF DISCHARGE. Time of 1ST Reevaluation: 12:20 Reevaluation 1ST: Unchanged Patient Education/Counseling: Diagnosis, Treatment, Need For Follow Up Family Education/Counseling: Diagnosis, Treatment, No Family Present Medical Screening: No EMC Exist At This Time SEPSIS Sepsis Screen Date sepsis recognized/suspect: Jul 18, 2025 Time Sepsis recognized/suspect: 1131 Recent Procedure: No On Antibiotic Therapy: No Respiratory Rate >20: No Heart Rate >90: No Temp<36 C (96.8 F) or >38.3 C: No SBP <90 or MAP <65 mmHG: No New Acute Mental Status Change: No Is the patient on CPAP, BIPAP,: No Vital Signs Date Time Temp Pulse Resp B/P (MAP) Pulse Ox O2 Delivery O2 Flow Rate FiO2 07/18/25 11:30 97.9 61 18 134/86 100 97.9 Departure 1 Departure Time of Disposition: 12:20 Impression: Primary Impression: Encounter for re-check of laceration wound Additional Impression: Encounter for removal of sutures Disposition: 01 HOME / SELF CARE / HOMELESS Condition: Stable Additional Instructions: FOLLOW-UP WITH THE ED IN 2 DAYS FOR WOUND RECHECK. TAKE MEDICATIONS PRESCRIBED. Discharged With: Self Critical Care Note Critical Care Time?: No Stability Stability form required: No Heart Score Heart Score: Heart Score Response (Comments) Value History N/A 0 EKG N/A 0 Age N/A 0 Risk Factors N/A 0 Troponin N/A 0 Total 0 I personally scribed for JOANN SOLIS ([email or web address]) on 07/18/25 at 12:11. Elect ronically submitted by Chris Saldivar ([email or web address]). JOANN SOLIS Jul 18, 2025 12:11
[2025-07-18 12:15] VITALS: BP 134/86; PULSE 61; RESP 18; TEMP 97.9; O2SAT 100
== END 2025-07-18 12:16 | disposition home or self-care (01) ==
LOC: ER 11:27
DX: S61.214D Laceration without foreign body of right ring finger without damage to nail, subsequent encounter (principal); Z48.02 Encounter for removal of sutures; X58.XXXD Exposure to other specified factors, subsequent encounter

== ENCOUNTER 2025-08-05 16:15 | Emergency (ER) | payer MEDICAID ==
[~2025-08-05] VITALS: Ht 177.8 cm; Wt 116.5 kg
--- NOTE | 2025-08-05 18:29 | DVH ---
CHEST RADIOGRAPH Indication: SOB Technique: Single frontal view of the chest was obtained Comparison: None FINDINGS: Lines and Tubes: None Lungs: Prominent bronchovascular markings in the perihilar regions bilaterally prominent interstitial markings right upper lung field. Prominent bronchovascular markings in the left perihilar area and l eft lower lobe. Findings most likely representing pneumonia. Pleura: No effusion. No pneumothorax. Cardiomediastinal contours: Unremarkable Bones: No acute osseous abnormality. IMPRESSION: 1. Findings suggest pneumonia in the right upper lobe left lower lobe and in the perihilar areas bila terally.
[2025-08-05 18:35] LABS: Hematocrit 43.3 % (41.0-53.0); Hemoglobin 15.2 g/dL (13.5-17.5); Mean Corpuscular Hemoglobin 30.0 pg (28.0-32.0); Mean Corpuscular Volume 85.6 fL (80.0-100.0); Nucleated Red Blood Cells % 0.1 %
[2025-08-05 18:50] LABS: Albumin 4.4 g/dL (3.2-4.8); Anion Gap 9 (5-15); BUN/Creatinine Ratio 9.3 (10.0-20.0); Calcium 9.3 mg/dL (8.7-10.4); Chloride 103 mmol/L (98-107); Glucose 86 mg/dL (74-106); Potassium 4.1 mmol/L (3.5-5.1); Sodium 143 mmol/L (136-145); Total Protein 7.1 g/dL (5.7-8.2)
[2025-08-05 18:51] LABS: Bilirubin, Total 0.6 mg/dL (0.2-1.0)
[2025-08-05 18:53] LABS: Alanine Aminotransferase 75 U/L (7-40); Alkaline Phosphatase 148 U/L (46-116); Blood Urea Nitrogen 8 mg/dL (9-23); Carbon Dioxide 31 mmol/L (20-31)
[2025-08-05] MEDS ORDERED: AZIT500T66 PO (19:00)
[2025-08-05] MEDS ORDERED: DOXY-346 PO (19:00)
[2025-08-05] MEDS ORDERED: ALBU108A5 IN (19:00)
--- NOTE | 2025-08-05 19:05 | ED.PDOC ---
History of Present Illness HPI Comments 45 y/o obese M presents with c/c of intermittent shortness of breath for 2x weeks. Endorsement of associated chills, sweats, and nonproductive cough. Onset of symptoms in the morning after waking up. Notable history of recent cessation of nicotine vape use and recovering from a recent infection he contract after receiving stitches for an laceration to his 4th digit on his right hand 3x weeks ago. Denial of any chest pain, fever, or further associated symptoms. Chief Complaint: Shortness of Breath Time Seen by MD: 16:10 Reviewed Notes: Nurses Notes, Medications, Allergies Allergies: Coded Allergies: NO KNOWN ALLERGIES (Unverified , 01/12/25) Home Meds Active Scripts Doxycycline (Monohydrate) (Doxycycline) 100 Mg Tab, 100 MG PO BID for 10 Days, #20 TAB Prov:JOSELYN ROMERO MD 08/05/25 Azithromycin (Azithromycin) 500 Mg Tab, 1 TAB PO DAILY, #5 TAB Prov:JOSELYN ROMERO MD 08/05/25 Albuterol Sulfate (Albuterol Sulfate Hfa) 108 Mcg/Act Aer, 108 MCG IN Q6HP PRN, #1 AER 3 Refills Prov:JOSELYN ROMERO MD 08/05/25 Ibuprofen Micronized (Ibuprofen) 800 Mg Tab, 800 MG PO Q8HP PRN, #20 TAB Prov:AZIZA MCLAUGHLIN PAC 07/12/25 Cephalexin (KEFLEX CAPSULE) 250 Mg Cp, 1 CAP PO QID for 7 Days, #28 CAP Prov:AZIZA MCLAUGHLIN PAC 07/12/25 Cephalexin Monohydrate (Cephalexin) 500 Mg Cap, 1 CAP PO QID, #32 CAP Prov:JOANN SOLIS 01/12/25 Information Source: Patient Mode of Arrival: Ambulatory Severity: Moderate Timing: Weeks Duration: Intermittent Prehospital treatment: None Past Medical History PAST MEDICAL HISTORY: Denies Surgical History: Denies all surgeries Family History Family History: Reviewed,noncontributory to illness Social History Smoker: Quit Less Than 1 Year (nicotine vape ) Alcohol: Denies ETOH Use Drugs: Denies Drug Use Lives In: Home All Other Systems: Reviewed and Negative (Comprehensive review of systems are negative unless stated in HPI) Physical Exam General Appearance: No Apparent Distress, Obese HEENT: Normal ENT Inspection, Pharynx Normal, TMs Normal Neck: Full Range of Motion, Non-Tender, Normal, Normal Inspection Respiratory: Chest Non-Tender, Lungs Clear, No Accessory Muscle Use, No Respiratory Distress, Normal Breath Sounds Cardiovascular: No Edema, No JVD, No Murmur, No Gallop, Normal Peripheral Pulses, Regular Rate/Rhythm Breast Exam: Deferred Gastrointestinal: No Organomegaly, Non Tender, No Pulsatile Mass, Normal Bowel Sounds, Soft Genitalia: Deferred Pelvic: Deferred Rectal: Deferred Extremities: No calf tenderness, Normal capillary refill, Normal inspection, Normal range of motion, Non-tender, No pedal edema Musculoskeletal : Apperance: Normal Neurologic: Alert, block hacker II-XII nml as Tested, No Motor Deficits, Normal Affect, Normal Mood, No Sensory Deficits Cerebellar Function: Normal Reflexes: Normal Skin: Dry, Normal Color, Warm Lymphatic: No Adenopathy Was a procedure done? Was a procedure done?: No Differential Dx Considerations may include: URI, viral syndrome, bronchitis, nicotine dependence, ME, PE, PNA, among others X-Ray, Labs, Meds, VS Vital Signs Date Time Temp Pulse Resp B/P (MAP) Pulse Ox O2 Delivery O2 Flow Rate FiO2 08/05/25 19:08 18 95 Room Air* 0 21 08/05/25 19:08 98.4 69 18 134/88 (103) 95 98.4 08/05/25 19:08 69 18 95 Room Air* 0 21 08/05/25 16:19 97.0 61 18 137/84 98 97.0 Lab Test 08/05/25 18:16 Range/Units White Blood Count 9.1 4.4-10.8 10^3/uL Red Blood Count 5.06 4.5-5.90 10^6/uL Hemoglobin 15.2 13.5-17.5 g/dL Hematocrit 43.3 41.0-53.0 % Mean Corpuscular Volume 85.6 80.0-100.0 fL Mean Corpuscular Hemoglobin 30.0 28.0-32.0 pg Mean Corpuscular Hemoglobin Concent 35.0 32.0-36.0 g/dL Red Cell Distribution Width 13.0 11.8-14.3 % Platelet Count 441 140-450 10^3/uL Mean Platelet Volume 6.4 L 6.9-10.8 fL Neutrophils (%) (Auto) 62.8 37.0-80.0 % Lymphocytes (%) (Auto) 15.7 10.0-50.0 % Monocytes (%) (Auto) 12.1 H 0.0-12.0 % Eosinophils (%) (Auto) 8.4 H 0.0-7.0 % Basophils (%) (Auto) 1.0 0.0-2.0 % Neutrophils # (Auto) 5.7 1.6-8.6 10 ^3/uL Lymphocytes # (Auto) 1.4 0.4-5.4 10 ^3/uL Monocytes # (Auto) 1.1 0-1.3 10 ^3/uL Eosinophils # (Auto) 0.8 0-0.8 10 ^3/uL Basophils # (Auto) 0.1 0-0.2 10 ^3/uL Nucleated Red Blood Cells 0.1 % Sodium Level 143 136-145 mmol/L Potassium Level 4.1 3.5-5.1 mmol/L Chloride Level 103 98-107 mmol/L Carbon Dioxide Level 31 20-31 mmol/L Anion Gap 9 5-15 Blood Urea Nitrogen 8 L 9-23 mg/dL Creatinine 0.86 0.700-1.30 mg/dL Glomerular Filtration Rate Calc 110 >90 mL/min BUN/Creatinine Ratio 9.3 L 10.0-20.0 Serum Glucose 86 74-106 mg/dL Calcium Level 9.3 8.7-10.4 mg/dL Total Bilirubin 0.6 0.2-1.0 mg/dL Aspartate Amino Transferase (AST) 81 H 13-40 U/L Alanine Aminotransferase (ALT) 75 H 7-40 U/L Alkaline Phosphatase 148 H 46-116 U/L Troponin I High Sensitivity 6 </=54 ng/L B-Type Natriuretic Peptide 27.04 0-100 pg/mL Total Protein 7.1 5.7-8.2 g/dL Albumin 4.4 3.2-4.8 g/dL Time of 1ST Reevaluation: 16:40 Reevaluation 1ST: Unchanged Patient Education/Counseling: Treatment, Need For Follow Up Family Education/Counseling: No Family Present SEPSIS Sepsis Screen Date sepsis recognized/suspect: Aug 05, 2025 Time Sepsis recognized/suspect: 1620 Recent Procedure: No On Antibiotic Therapy: No Respiratory Rate >20: No Heart Rate >90: No Temp<36 C (96.8 F) or >38.3 C: No SBP <90 or MAP <65 mmHG: No New Acute Mental Status Change: No Is the patient on CPAP, BIPAP,: No Physician Orders Chest Portable (08/05/25 17:55) Electrocardigram (08/05/25 17:55) Vital Signs Date Time Temp Pulse Resp B/P (MAP) Pulse Ox O2 Delivery O2 Flow Rate FiO2 08/05/25 19:08 18 95 Room Air* 0 21 08/05/25 19:08 98.4 69 18 134/88 (103) 95 98.4 08/05/25 19:08 69 18 95 Room Air* 0 21 08/05/25 16:19 97.0 61 18 137/84 98 97.0 Laboratory Tests Test 08/05/25 18:16 White Blood Count 9.1 10^3/uL (4.4-10.8) Departure 1 Departure Time of Disposition: 19:00 Impression: Primary Impression: Pneumonia Disposition: 01 HOME / SELF CARE / HOMELESS Condition: Stable Additional Instructions: Follow up with your primary physician Return to the Emergency Department for any worsening symptoms or concerns e-Prescriptions Doxycycline (Monohydrate) (Doxycycline) 100 Mg Tab 100 MG PO BID for 10 Days, #20 TAB Prov: JOSELYN ROMERO MD 08/05/25 Azithromycin (Azithromycin) 500 Mg Tab 1 TAB PO DAILY, #5 TAB Prov: JOSELYN ROMERO MD 08/05/25 Albuterol Sulfate (Albuterol Sulfate Hfa) 108 Mcg/Act Aer 108 MCG IN Q6HP PRN, #1 AER 3 Refills Prov: JOSELYN ROMERO MD 08/05/25 Discharged With: Self Critical Care Note Critical Care Time?: No Stability Stability form required: No Heart Score Heart Score: Heart Score Response (Comments) Value History Moderate Suspicious 1 EKG Normal 0 Age <45 0 Risk Factors No known risk factors 0 Troponin Normal limit 0 Total 1 I personally scribed for JOSELYN ROMERO MD ([email or web address]) on 08/05/25 at 19:05. Electronically submitted by Everton Castillo ([email or web address]). JOSELYN ROMERO MD Aug 05, 2025 19:05
[2025-08-05 19:08] VITALS: BP 134/88; PULSE 69; RESP 18; TEMP 98.4; O2SAT 95
== END 2025-08-05 19:14 | disposition home or self-care (01) ==
LOC: ER 16:15
DX: J18.9 Pneumonia, unspecified organism (principal)
CPT/HCPCS: 36415; 71045; 80053; 83880; 84484; 85025

== ENCOUNTER 2025-08-08 12:00 | Emergency (ER) | payer MEDICAID ==
[~2025-08-08] VITALS: Ht 180.3 cm; Wt 116.5 kg
[~2025-08-08 12:00] MED LIST changes: +ALBU108A5 IN; +AZIT500T66 PO; +DOXY-346 PO
[2025-08-08 12:02] VITALS: BP 135/85; RESP 16; TEMP 98.3; O2SAT 96
[2025-08-08 13:13] VITALS: PULSE 65
--- NOTE | 2025-08-08 13:13 | ED.PDOC ---
History of Present Illness HPI Comments 45-year-old male presents to the ER with a chief complaint of shortness a breath. Patient reports the he has been having shortness a breath associated with a fever on Wednesday of 08/05/2025 for which he came to [facility] and was diagnosed with pneumonia original physician prescribe the patient doxycycline, azithrom ycin and albuterol. Patient states that he is still has shortness a breath which worsens with ambulation and is associated with coughing. Denies any other symptoms at this time. Denies chills, fever, N/V/D, CP. No other associated symptoms, modifiers, recent injuries or sick contacts present at this time. Chief Complaint: Shortness of Breath Time Seen by MD: 13:00 Reviewed Notes: Nurses Notes, Medications, Allergies Allergies: Coded Allergies: NO KNOWN ALLERGIES (Unverified , 01/12/25) Home Meds Active Scripts Doxycycline (Monohydrate) (Doxycycline) 100 Mg Tab, 100 MG PO BID for 10 Days, #20 TAB Prov:JOSELYN ROMERO MD 08/05/25 Azithromycin (Azithromycin) 500 Mg Tab, 1 TAB PO DAILY, #5 TAB Prov:JOSELYN ROMERO MD 08/05/25 Albuterol Sulfate (Albuterol Sulfate Hfa) 108 Mcg/Act Aer, 108 MCG IN Q6HP PRN, #1 AER 3 Refills Prov:JOSELYN ROMERO MD 08/05/25 Ibuprofen Micronized (Ibuprofen) 800 Mg Tab, 800 MG PO Q8HP PRN, #20 TAB Prov:AZIZA MCLAUGHLIN PAC 07/12/25 Cephalexin (KEFLEX CAPSULE) 250 Mg Cp, 1 CAP PO QID for 7 Days, #28 CAP Prov:AZIZA MCLAUGHLIN PAC 07/12/25 Cephalexin Monohydrate (Cephalexin) 500 Mg Cap, 1 CAP PO QID, #32 CAP Prov:JOANN SOLIS 01/12/25 Information Source: Patient Mode of Arrival: Ambulatory Severity: Moderate Timing: Days Duration: Since onset, Days Prehospital treatment: None Past Medical History Past Medical History (Other): Tightness with pneumonia on 08/05/2025 Surgical History: Denies all surgeries Family History Family History: Reviewed,noncontributory to illness, Unknown Social History Smoker: Quit Less Than 1 Year Alcohol: Denies ETOH Use Drugs: Denies Drug Use Lives In: Home Constitutional: denies: chills, diaphoresis, fatigue, fever, malaise, sweats, weakness, others EENTM: denies: blurred vision, double vision, ear bleeding, ear discharge, ear drainage, ear pain, ear ringing, eye pain, eye redness, hearing loss, mouth pain, mouth swelling, nasal discharge, nose bleeding, nose congestion, nose pain, photophobia, tearing, throat pain, throat swelling, voice changes, others Respiratory: reports: cough, shortness of breath; denies: hemoptysis, orthopnea, SOB at rest, SOB with excertion, stridor, wheezing, others Cardiovascular: denies: chest pain, dizzy spells, diaphoresis, Dyspnea on exe rtion, edema, irregular heart beat, left arm pain, lightheadedness, palpitations, PND, syncope, others Gastrointestinal: denies: abdomen distended, abdominal pain, blood streaked bowels, constipated, diarrhea, dysphagia, difficulty swallowing, hematemesis, melena, nausea, poor appetite, poor fluid intake, rectal bleeding, rectal pain, vomiting, others Genitourinary: denies: burning, dysuria, flank pain, frequency, hematuria, incontinence, penile discharge, penile sore, pain, testicle pain, testicle swelling, urgency, others Neurological: denies: dizziness, fainting, headache, left sided numbness, left sided weakness, numbness, paresthesia, pre-existing deficit, right sided numbness, right sided weakness, seizure, speech problems, tingling, tremors, weakness, others Musculoskeletal: denies: back pain, gout, joint pain, joint swelling, muscle pain, muscle stiffness, neck pain, others Integumetry: denies: bruises, change in color, change in hair/nails, dryness, laceration, lesions, lumps, rash, wounds, others Allergic/Immunocompromised: denies: Difficulty Healing, Frequent Infections, Hives, Itching, others Hematologic/Lymphatic: denies: anemia, blood clots, easy bleeding, easy bruising, swollen glands, others Endocrine: denies: excessive hunger, excessive sweating, excessive thirst, excessive urination, flushing, intolerance to cold, intolerance to heat, unexplained weight gain, unexplained weight loss, others Psychiatric: denies: anxiety, bipolar disorder, depression, hopeless, panic disorder, schizophrenia, sleepless, suicidal, others All Other Systems: Reviewed and Negative Physical Exam General Appearance: Moderate Distress, Normal HEENT: Normal ENT Inspection, Pharynx Normal, TMs Normal Neck: Full Range of Motion, Non-Tender, Normal, Normal Inspection Respiratory: Chest Non-Tender, Lungs Clear, No Accessory Muscle Use, No Respiratory Distress, Normal Breath Sounds Cardiovascular: No Edema, No JVD, No Murmur, No Gallop, Normal Peripheral Pulses, Regular Rate/Rhythm Breast Exam: Deferred Gastrointestinal: No Organomegaly, Non Tender, No Pulsatile Mass, Normal Bowel Sounds, Soft Genitalia: Deferred Pelvic: Deferred Rectal: Deferred Extremities: No calf tenderness, Normal capillary refill, Normal inspection, Normal range of motion, Non-tender, No pedal edema Musculoskeletal : Apperance: Normal Neurologic: Alert, technical sales support specialist II-XII nml as Tested, No Motor Deficits, Normal Affect, Normal Mood, No Sensory Deficits Cerebellar Function: Normal Reflexes: Normal Skin: Dry, Normal Color, Warm Peripheral Pulses: 3+ Radial (R), 3+ Radial (L) Lymphatic: No Adenopathy Was a procedure done? Was a procedure done?: No EKG EKG : Pulse Rate (adult): 65 [place]: Normal Cardiac Rhythm: NSR Block: None Hypertrophy: None ST: Normal Differential Dx Considerations may include: CHF Electrolyte imbalance X-Ray, Labs, Meds, VS Vital Signs Date Time Temp Pulse Resp B/P (MAP) Pulse Ox O2 Delivery O2 Flow Rate FiO2 08/08/25 13:13 65 08/08/25 12:18 65 08/08/25 12:02 98.3 64 16 135/85 96 98.3 Patient alert. Vitals stable. Complaining of shortness a breath. Answering questions. Abdomen is soft nontender. Explained to the patient. Continue monitoring. Time of 1ST Reevaluation: 13:30 Reevaluation 1ST: Unchanged Patient Education/Counseling: Diagnosis, Treatment, Prognosis Family Education/Counseling: No Family Present SEPSIS Sepsis Screen Date sepsis recognized/suspect: Aug 08, 2025 Time Sepsis recognized/suspect: 1204 Recent Procedure: No On Antibiotic Therapy: No Respiratory Rate >20: No Heart Rate >90: No Temp<36 C (96.8 F) or >38.3 C: No SBP <90 or MAP <65 mmHG: No New Acute Mental Status Change: No Is the patient on CPAP, BIPAP,: No Physician Orders Electrocardigram (08/08/25 12:06) Vital Signs Date Time Temp Pulse Resp B/P (MAP) Pulse Ox O2 Delivery O2 Flow Rate FiO2 08/08/25 13:13 65 08/08/25 12:18 65 08/08/25 12:02 98.3 64 16 135/85 96 98.3 Departure 1 Departure Time of Disposition: 17:50 Impression: Primary Impression: CHF (congestive heart failure) Qualified Codes: I50.43 - Acute on chronic combined systolic (congestive) and diastolic (congestive) heart failure Disposition: ADMITTED INPATIENT Admit to: Med Surg Condition: Guarded Critical Care Note Critical Care Time?: Yes (90 min-critical care time only) Stability Stability form required: No Heart Score Heart Score: Heart Score Response (Comments) Value History N/A 0 EKG N/A 0 Age N/A 0 Risk Factors N/A 0 Troponin N/A 0 Total 0 I personally scribed for RUEL SOLARES MD ([email or web address]) on 08/08/25 at 13:13. Electronically submitted by Reggie Boykin ([email or web address]). I personally scribed for RUEL SOLARES MD ([email or web address]) on 08/08/25 at 13:13. Electronically submitted by Reggie Boykin ([email or web address]). RUEL SOLARES MD Aug 08, 2025 13:13
--- NOTE | 2025-08-08 20:12 | ECG ---
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
== END 2025-08-08 13:28 | disposition left against medical advice (07) ==
LOC: ER 12:00
DX: I50.9 Heart failure, unspecified (principal); Z87.01 Personal history of pneumonia (recurrent); Z79.899 Other long term (current) drug therapy
CPT/HCPCS: 93005

== ENCOUNTER 2025-08-29 17:18 | Emergency (ER) | payer MEDICAID ==
[~2025-08-29] VITALS: Ht 180.3 cm; Wt 116.3 kg
[2025-08-29 17:19] VITALS: BP 139/78; RESP 15; TEMP 97.9; O2SAT 96
--- NOTE | 2025-08-29 17:25 | ECG ---
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
--- NOTE | 2025-08-29 17:35 | ED.PDOC ---
History of Present Illness HPI Comments 45M presents to the ER w/ prior MHx of pneumonia x1 month and the c/c of CP. Pt reports on having had a cough w/ yellow phlegm for the past month, and started to have substernal CP while drinking tea. Pt has 8/10 on the pain scale. Denies any other symptoms at this time. Denies chills, fever, N/V/D, SOB. Denies any other associated symptom's, modifiers, or recent injuries or sick contact at this time. Chief Complaint: Chest Pain Time Seen by MD: 17:30 Reviewed Notes: Nurses Notes, Medications, Allergies Allergies: Coded Allergies: NO KNOWN ALLERGIES (Unverified , 01/12/25) Home Meds Active Scripts Doxycycline (Monohydrate) (Doxycycline) 100 Mg Tab, 100 MG PO BID for 10 Days, #20 TAB Prov:JOSELYN ROMERO MD 08/05/25 Azithromycin (Azithromycin) 500 Mg Tab, 1 TAB PO DAILY, #5 TAB Prov:JOSELYN ROMERO MD 08/05/25 Albuterol Sulfate (Albuterol Sulfate Hfa) 108 Mcg/Act Aer, 108 MCG IN Q6HP PRN, #1 AER 3 Refills Prov:JOSELYN ROMERO MD 08/05/25 Ibuprofen Micronized (Ibuprofen) 800 Mg Tab, 800 MG PO Q8HP PRN, #20 TAB Prov:AZIZA MCLAUGHLIN PAC 07/12/25 Cephalexin (KEFLEX CAPSULE) 250 Mg Cp, 1 CAP PO QID for 7 Days, #28 CAP Prov:AZIZA MCLAUGHLIN PAC 07/12/25 Cephalexin Monohydrate (Cephalexin) 500 Mg Cap, 1 CAP PO QID, #32 CAP Prov:JOANN SOLIS 01/12/25 Information Source: Patient Mode of Arrival: Ambulatory Severity: Moderate Timing: Hours Duration: Since onset, Hours Prehospital treatment: None Past Medical History Past Medical History (Other): Pneumonia for 1 month Surgical History: Denies all surgeries Family History Family History: Reviewed,noncontributory to illness, Family hx of DM Social History Smoker: Quit Less Than 1 Year Alcohol: Occasionally Drugs: Denies Drug Use Lives In: Home Constitutional: denies: chills, diaphoresis, fatigue, fever, malaise, sweats, weakness, others EENTM: denies: blurred vision, double vision, ear bleeding, ear discharge, ear drainage, ear pain, ear ringing, eye pain, eye redness, hearing loss, mouth pain, mouth swelling, nasal discharge, nose bleeding, nose congestion, nose pain, photophobia, tearing, throat pain, throat swelling, voice changes, others Respiratory: reports: cough; denies: hemoptysis, orthopnea, SOB at rest, shortness of breath, SOB with excertion, stridor, wheezing, others Cardiovascular: reports: chest pain; denies: dizzy spells, diaphoresis, Dyspnea on exertion, edema, irregular heart beat, left arm pain, lightheadedness, palpitations, PND, syncope, others Gastrointestinal: denies: abdomen distended, abdominal pain, blood streaked bowels, constipated, diarrhea, dysphagia, difficulty swallowing, hematemesis, melena, nausea, poor appetite, poor fluid intake, rectal bleeding, rectal pain, vomiting, others Genitourinary: denies: burning, dysuria, flank pain, frequency, hematuria, incontinence, penile discharge, penile sore, pain, testicle pain, testicle swelling, urgency, others Neurological: denies: dizziness, fainting, headache, left sided numbness, left sided weakness, numbness, paresthesia, pre-existing deficit, right sided numbness, right sided weakness, seizure, speech problems, tingling, tremors, weakness, others Musculoskeletal: denies: back pain, gout, joint pain, joint swelling, muscle pain, muscle stiffness, neck pain, others Integumetry: denies: bruises, change in color, change in hair/nails, dryness, laceration, lesions, lumps, rash, wounds, others Allergic/Immunocompromised: denies: Difficulty Healing, Frequent Infections, Hives, Itching, others Hematologic/Lymphatic: denies: anemia, blood clots, easy bleeding, easy bruising, swollen glands, others Endocrine: denies: excessive hunger, excessive sweating, excessive thirst, excessive urination, flushing, intolerance to cold, intolerance to heat, unexplained weight gain, unexplained weight loss, others Psychiatric: denies: anxiety, bipolar disorder, depression, hopeless, panic disorder, schizophrenia, sleepless, suicidal, others All Other Systems: Reviewed and Negative Physical Exam General Appearance: Moderate Distress, Obese HEENT: Normal ENT Inspection, Pharynx Normal, TMs Normal Neck: Full Range of Motion, Non-Tender, Normal, Normal Inspection Respiratory: Chest Non-Tender, Lungs Clear, No Accessory Muscle Use, No Respiratory Distress, Normal Breath Sounds Cardiovascular: No Edema, No JVD, No Murmur, No Gallop, Normal Peripheral Pulses, Regular Rate/Rhythm Breast Exam: Deferred Gastrointestinal: No Organomegaly, Non Tender, No Pulsatile Mass, Normal Bowel Sounds, Soft Genitalia: Deferred Pelvic: Deferred Rectal: Deferred Extremities: No calf tenderness, Normal capillary refill, Normal inspection, Normal range of motion, Non-tender, No pedal edema Musculoskeletal : Apperance: Normal Neurologic: Alert, 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 Was a procedure done?: No EKG EKG : Pulse Rate (adult): 66 [place]: Normal Cardiac Rhythm: NSR Block: None Hypertrophy: None ST: Normal Differential Dx Considerations may include: ACS, OH, generalized weakness, ACS X-Ray, Labs, Meds, VS Vital Signs Date Time Temp Pulse Resp B/P (MAP) Pulse Ox O2 Delivery O2 Flow Rate FiO2 08/29/25 17:35 66 08/29/25 17:24 66 08/29/25 17:19 97.9 73 15 139/78 96 97.9 Lab Test 08/29/25 17:25 Range/Units White Blood Count 8.8 4.4-10.8 10^3/uL Red Blood Count 5.13 4.5-5.90 10^6/uL Hemoglobin 14.7 13.5-17.5 g/dL Hematocrit 43.6 41.0-53.0 % Mean Corpuscular Volume 84.9 80.0-100.0 fL Mean Corpuscular Hemoglobin 28.7 28.0-32.0 pg Mean Corpuscular Hemoglobin Concent 33.8 32.0-36.0 g/dL Red Cell Distribution Width 13.2 11.8-14.3 % Platelet Count 360 140-450 10^3/uL Mean Platelet Volume 6.8 L 6.9-10.8 fL Neutrophils (%) (Auto) 57.1 37.0-80.0 % Lymphocytes (%) (Auto) 27.1 10.0-50.0 % Monocytes (%) (Auto) 6.9 0.0-12.0 % Eosinophils (%) (Auto) 7.7 H 0.0-7.0 % Basophils (%) (Auto) 1.2 0.0-2.0 % Neutrophils # (Auto) 5.1 1.6-8.6 10 ^3/uL Lymphocytes # (Auto) 2.4 0.4-5.4 10 ^3/uL Monocytes # (Auto) 0.6 0-1.3 10 ^3/uL Eosinophils # (Auto) 0.7 0-0.8 10 ^3/uL Basophils # (Auto) 0.1 0-0.2 10 ^3/uL Nucleated Red Blood Cells 0.1 % Sodium Level 141 136-145 mmol/L Potassium Level 4.1 3.5-5.1 mmol/L Chloride Level 103 98-107 mmol/L Carbon Dioxide Level 28 20-31 mmol/L Anion Gap 10 5-15 Blood Urea Nitrogen 9 9-23 mg/dL Creatinine 1.01 0.700-1.30 mg/dL Glomerular Filtration Rate Calc 95 >90 mL/min BUN/Creatinine Ratio 8.9 L 10.0-20.0 Serum Glucose 102 74-106 mg/dL Calcium Level 9.5 8.7-10.4 mg/dL Troponin I High Sensitivity 11 </=54 ng/L B-Type Natriuretic Peptide Pending IV Hep-Lock has been established The CBC and chemistry panel are within normal limits The troponin level is negative The chest x-ray is negative The patient is being given aspirin here in the emergency department's The patient is being admitted with a diagnosis of acute chest pain Images Reviewed?: Images reviewed and evaluated by me Time of 1ST Reevaluation: 18:00 Reevaluation 1ST: Unchanged Patient Education/Counseling: Diagnosis, Treatment, Prognosis Family Education/Counseling: No Family Present SEPSIS Sepsis Screen Date sepsis recognized/suspect: Aug 29, 2025 Time Sepsis recognized/suspect: 1719 Recent Procedure: No On Antibiotic Therapy: No Respiratory Rate >20: No Heart Rate >90: No Temp<36 C (96.8 F) or >38.3 C: No SBP <90 or MAP <65 mmHG: No New Acute Mental Status Change: No Is the patient on CPAP, BIPAP,: No Physician Orders Troponin-I Hs (08/29/25 18:21) Troponin-I Hs (08/29/25 20:21) Electrocardigram (08/29/25 18:21) Electrocardigram (08/29/25 20:21) B-Type Natriuretic Peptide (08/29/25 17:26) Chest Two Views Routine (08/29/25 17:26) Vital Signs Date Time Temp Pulse Resp B/P (MAP) Pulse Ox O2 Delivery O2 Flow Rate FiO2 08/29/25 17:35 66 08/29/25 17:24 66 08/29/25 17:19 97.9 73 15 139/78 96 97.9 Laboratory Tests Test 08/29/25 17:25 White Blood Count 8.8 10^3/uL (4.4-10.8) Departure 1 Departure Time of Disposition: 18:12 Impression: Primary Impression: Acute chest pain Additional Impression: Acute myocardial ischemia Disposition: ADMITTED INPATIENT Admit to: Tele Condition: Fair Critical Care Note Critical Care Time?: Yes (45 min-critical care time only) Stability Stability form required: Yes Unstable for transfer: Telemetry monitoring (Telemetry monitoring required), ED Physician Assesment (Clinical assesment) Heart Score Heart Score: Heart Score Response (Comments) Value History Moderate Suspicious 1 EKG Repolarization Disturb 1 Age <45 0 Risk Factors 1 or 2 risk factors 1 Troponin Normal limit 0 Total 3 I personally scribed for HAYDEN SALAZAR MD ([email or web address]) on 08/29/25 at 17:35. Electronically submitted by Reggie Boykin ([email or web address]). I personally scribed for HAYDEN SALAZAR MD ([email or web address]) on 08/29/25 at 17:35. Electronically submitted by Reggie Boykin ([email or web address]). HAYDEN SALAZAR MD Aug 29, 2025 17:35
[2025-08-29 17:53] LABS: Hematocrit 43.6 % (41.0-53.0); Hemoglobin 14.7 g/dL (13.5-17.5); Mean Corpuscular Hemoglobin 28.7 pg (28.0-32.0); Mean Corpuscular Volume 84.9 fL (80.0-100.0); Nucleated Red Blood Cells % 0.1 %
--- NOTE | 2025-08-29 17:56 | DVH ---
XY CHEST TWO VIEWS ROUTINE CLINICAL HISTORY: cough COMPARISON: None TECHNIQUE: Frontal and lateral view of the chest was obtained FINDINGS: Lines and Tubes: None Lungs: Lateral perihilar peribronchial thickening Pleura: No effusion. No pneumothorax. Cardiomediastinal contours: Unremarkable Bones: No acute osseous abnormality. IMPRESSION: 1. Persistent bilateral perihilar prominence of the bronchovascular markings consider CT with IV contrast for further evaluation to exclude neoplasm.
[2025-08-29 17:57] LABS: Chloride 103 mmol/L (98-107); Potassium 4.1 mmol/L (3.5-5.1); Sodium 141 mmol/L (136-145)
[2025-08-29 17:58] LABS: Anion Gap 10 (5-15); Calcium 9.5 mg/dL (8.7-10.4); Carbon Dioxide 28 mmol/L (20-31)
[2025-08-29 18:03] LABS: BUN/Creatinine Ratio 8.9 (10.0-20.0); Glucose 102 mg/dL (74-106)
[2025-08-29 18:05] LABS: Blood Urea Nitrogen 9 mg/dL (9-23)
[2025-08-29 18:13] VITALS: PULSE 66
--- NOTE | 2025-08-29 18:14 | ECG ---
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
--- NOTE | 2025-08-29 19:51 | DVH ---
EXAM: CT CT CHEST/AB/PL W CON- IV ONLY INDICATION: sob/weakness TECHNIQUE: Volumetric multidetector CT images of the chest, abdomen and pelvis were obtained after the administration of IV contrast. All CT scans at this facility use dose modulation, iterative reconstruction, and/or weight based dosing when appropriate to reduce radiation dose to as low as reasonably achievable. COMPARISON: XY CHEST TWO VIEWS ROUTINE on DOS: 08/29/25 FINDINGS: LOWER NECK: Unremarkable LYMPH NODES/MEDIASTINUM: No abnormal lymph nodes by CT size criteria. CARDIOVASCULAR: Normal cardiac size. No pericardial effusion. No aneurysmal dilatation of the great vessels. No significant coronary artery calcifications. LUNG PARENCHYMA/PLEURAL SPACE: No pleural effusion or pneumothorax. Significant consolidation in the superior segment of the left lobe with superimposed tree-in-bud configuration throughout the entirety of the left lower lobe compatible with pneumonia. Additional tree-in-bud configuration in the right upper lobe and right middle lobe. CHEST WALL: Unremarkable. LIVER: Normal hepatic size without suspicious focal lesion. GALLBLADDER/BILIARY TREE: Trace cholelithiasis SPLEEN: Unremarkable. PANCREAS: Unremarkable. ADRENAL GLANDS: Unremarkable KIDNEYS: No hydronephrosis. BLADDER: Unremarkable for the degree distention. PELVIC ORGANS: Unremarkable. BOWEL/MESENTERY: No CT evidence of bowel obstruction. Mild stool burden. ASCITES: Absent LYMPHADENOPATHY: No pathologically enlarged lymph nodes by CT size criteria VASCULATURE: No aneurysmal dilatation. ABDOMINAL WALL: Small fat-containing umbilical hernia. MUSCULOSKELETAL: No acute fracture or aggressive focal osseous lesion. IMPRESSION: 1. Significant consolidation in the superior segment of the left lower lobe with superimposed tree-in-bud configuration throughout the entirety of the left lower lobe compatible with pneumonia. 2. Additional tree-in-bud configuration in the right upper lobe and right middle lobe.
[2025-08-29] MEDS: IOHEXOL 300 MG/ML 100ML BOTTLE IJ ONE (19:52)
== END 2025-08-29 20:03 | disposition left against medical advice (07) ==
LOC: ER 17:18
DX: R07.9 Chest pain, unspecified (principal); I25.9 Chronic ischemic heart disease, unspecified; R05.9 Cough, unspecified; R06.02 Shortness of breath
CPT/HCPCS: 36415; 71046; 71260; 74177; 80048; 83880; 84484; 85025; 93005; 99291; Q9967